=== PATIENT | female | born 1985 | race American Indian/Alaskan Native ===

== ENCOUNTER 2017-11-21 12:52 | Emergency (ER) | payer OTHER, MEDICAID ==
[2017-11-21 12:58] VITALS: BP 155/83
[2017-11-21] MEDS ORDERED: TYLENOL PO ONE (14:24)
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
== END 2017-11-21 16:31 | disposition home or self-care (01) ==
LOC: ED 12:52
DX: M54.2 Cervicalgia (principal); R51 Headache
CPT/HCPCS: 70450; 72125; 99283